=== PATIENT | male | born 1990 | race African-American/Black ===

== ENCOUNTER 2018-04-11 00:07 | Emergency (ER) | payer BC ==
[~2018-04-11] VITALS: Ht 170.2 cm; Wt 73.9 kg
[~2018-04-11 00:07] MED LIST: PROVENTIL HFA6.7 GM IH
[2018-04-11 00:25] VITALS: BP 111/56
[2018-04-11] MEDS ORDERED: NAPR-514 PO (00:29)
[2018-04-11] MEDS ORDERED: PENI500T PO (00:29)
--- NOTE | 2018-04-11 00:30 | PHYS DOC ---
Past Medical History Past Medical History: No Pertinent History Past Surgical History: No Surgical History Alcohol Use: Occasionally Drug Use: None Adult General Chief Complaint Chief Complaint: DENTAL PROBLEM HPI HPI Patient is a 27 year old AA male who presents to the emergency department with complaints of left lower quadrant dental pain for the last 2 days. He denies any fever, cough, shortness of breath, abdominal pain, nausea, vomiting, or rash. He states that the pain radiates to his left ear, he denies any drainage from his ear or decreased hearing. Currently he rates the pain a 10 out of 10 on the pain scale and has not taken anything for relief of his pain at this time Review of Systems Review of Systems Constitutional: Denies fever or chills [] HENT: Denies nasal congestion or sore throat; see history of present illness [] Respiratory: Denies cough or shortness of breath [] GI: Denies abdominal pain, nausea, or vomiting Neurologic: Denies headache, focal weakness or sensory changes [] All other systems were reviewed and found to be within normal limits, except as documented in this note. Allergies Allergies Allergies Coded Allergies Type Severity Reaction Last Updated Verified No Known Drug Allergies 03/20/17 No Physical Exam Physical Exam Constitutional: Well developed, well nourished, no acute distress, non-toxic appearance. [] HENT: Normocephalic, atraumatic, bilateral external ears normal, waxy debris in bilateral ear canals, oropharynx moist, no oral exudates, nose normal; fetus dental decay noted to tooth 14, 15, and 16; no visible dental abscess mild erythema of surrounding gingiva Eyes: PERRLA, conjunctiva normal, no discharge. [] Neck: Normal range of motion, no tenderness, supple, no stridor. [] Skin: Warm, dry, no erythema, no rash. [] Neurologic: Alert and oriented X 3, normal motor function, normal sensory function, no focal deficits noted. [] Psychologic: Affect normal, judgement normal, mood normal. [] EKG EKG [] Radiology/Procedures Radiology/Procedures [] Course & Med Decision Making Course & Med Decision Making Pertinent Labs and Imaging studies reviewed. (See chart for details) dx: infected dental caries, dentalgia Prescriptions for penicillin VK, and naproxen written, Dental referral list provided. Follow up with dentist for further treatment of dental decay, return to ER if symptoms worsen. Patient verbalized an understanding of home care, medications, follow-up, and return to ED instructions and was in agreement with the plan of care. [] Dragon Disclaimer Dragon Disclaimer This electronic medical record was generated, in whole or in part, using a voice recognition dictation system. Departure Departure Impression: Primary Impression: Infected dental caries Additional Impression: Dentalgia Disposition: HOME, SELF-CARE Condition: STABLE Referrals: NO PCP (PCP) Patient Instructions: Dental Caries Additional Instructions: Fill the prescriptions and use them as directed. Use the provided dental referral list to find a dentist and have further treatment of your cavities. Return to the emergency room if your symptoms worsen Scripts Naproxen (NAPROXEN) 500 Mg Tablet 500 MG PO BID PRN for PAIN for 10 Days, #20 TAB 0 Refills Prov: APOLLO AVENDANO APRN 04/11/18 Penicillin V Potassium (PENICILLIN V POTASSIUM) 500 Mg Tablet 1 TAB PO QID, #40 TAB Prov: APOLLO AVENDANO APRN 04/11/18 Problem Qualifiers APOLLO AVENDANO APRN Apr 11, 2018 00:30
== END 2018-04-11 00:35 | disposition home or self-care (01) ==
LOC: ER 00:07
DX: K02.9 Dental caries, unspecified (principal)
CPT/HCPCS: 99283